=== PATIENT | male | born 1995 | race Asian ===

== ENCOUNTER 2016-12-26 04:23 | Emergency (ER) | payer OTHER ==
[~2016-12-26] VITALS: Ht 172.7 cm; Wt 99.5 kg
[2016-12-26 05:34] LABS: HEMATOCRIT 42.8 % (39.2-51.8); HEMOGLOBIN 14.7 g/dL (13.7-18.0); WHITE BLOOD COUNT 6.6 x10^3/uL (3.4-10)
[2016-12-26 05:45] LABS: ASPARTATE AMINO TRANSFERASE 24 U/L (15-37); BLOOD UREA NITROGEN 14 mg/dL (7-18)
[2016-12-26 05:48] LABS: IS PT STATUS REG ER OR PRE ER? YES
[2016-12-26 06:24] VITALS: BP 116/75
[2016-12-26] MEDS ORDERED: ALBUTEROL SULFATE 2.5 MG/3 ML NPPB ONE (06:30)
== END 2016-12-26 07:20 | disposition home or self-care (01) ==
LOC: ED 05:36
DX: R06.00 Dyspnea, unspecified (principal)
CPT/HCPCS: 36415; 71020; 80053; 83880; 84484; 85025; 93005; 94640; 99285; J7613